=== PATIENT | male | born 1975 | race American Indian/Alaskan Native ===

== ENCOUNTER 2019-10-16 06:10 | Day surgery (SDC) | payer BC, OTHER ==
[~2019-10-16 06:10] MED LIST: MIDAZOLAM 2 MG/2 ML INJ IV NR; SCOPOLAMINE TRANSDERMAL PATCH 72 HR TD NR; SODIUM CHLORIDE 0.9% 1000 ML 1,000 ML IV SCH; ceFAZolin/Water 2 GM/20 ML 2 GM/20 ML SYRINGE IV NR; fentaNYL 100 MCG/2 ML INJ IV PRN
[2019-10-16 06:59] LABS: Hematocrit 28.5 % (35.5-45.6); Hemoglobin 9.8 gm/dl (11.8-15.2); Mean Corpuscular HGB Conc 34 % (32-34); Mean Corpuscular Volume 95 fl (84-94); Platelet Count 366 K/mm3 (140-440); Red Cell Distribution Width 14.7 % (13.2-15.2)
[2019-10-16] MEDS ORDERED: BUPIVACAINE/PF (0.5%) 5 MG/1 ML 30 ML VIAL INFILTRATI ONE ×3 (07:15→09:52)
[2019-10-16 07:17] LABS: Calcium 7.4 mg/dL (8.4-10.2)
--- NOTE | 2019-10-16 07:19 | Anesthesia Day of Surgery ---
Anesthesia Day of Surgery - Day of Surgery Patient Examined: Yes Patient H&P Reviewed: Yes Patient is NPO: Yes Beta Blockers: Yes (carvedilol today AM)
--- NOTE | 2019-10-16 07:19 | Anesthesia Consultation ---
Anesthesia Consult and Med Hx Date of service: 10/16/19 - Airway Anesthetic Teeth Evaluation: Good ROM Head & Neck: Adequate Mental/Hyoid Distance: Adequate Mallampati Class: Class III Intubation Access Assessment: Possibly Difficult - Pulmonary Exam CTA: Yes - Cardiac Exam Cardiac Exam: RRR - Pre-Operative Health Status ASA Pre-Surgery Classification: ASA3 Proposed Anesthetic Plan: MAC Nerve Block: Suraclavicular - Pulmonary Hx Smoking: Yes (cigars) Hx Respiratory Symptoms: No Hx Sleep Apnea: No (KAI HIGH ON PRESCREEN- SNORES) - Cardiovascular System Hx Hypertension: Yes (took antihypertensives this morning) Hx Heart Attack/AMI: No (normal EF on 01/2018 TTE) Hx Percutaneous Transluminal Coronary Angioplasty (PTCA): No Hx Cardia Arrhythmia: No Hx Valvular Heart Disease: No - Central Nervous System CVA: No - Gastrointestinal Hx Gastroesophageal Reflux Disease: Yes - Endocrine Hx End Stage Renal Disease: Yes (last PD 8/3 (nightly PD)) Hx Liver Disease: No Hx Insulin Dependent Diabetes: Yes Hx Thyroid Disease: No - Hematic Hx Anemia: Yes - Other Systems Hx Obesity: Yes (BMI 30) - Additional Comments Anesthesia Medical History Comments: No hx anesthetic complications.
[2019-10-16] MEDS ORDERED: BUPIVACAINE-EPINEPHRINE/PF 0.5%-1:200,000 (30 ML) VIAL INFILTRATI ONE (07:39)
[2019-10-16] MEDS ORDERED: LIDOCAINE (1%) 10 MG/1 ML VIAL 20 ML MDV ONE (07:39)
[2019-10-16] MEDS ORDERED: HEPARIN 10,000 UNITS/10 ML VIAL ONE (07:39)
[2019-10-16] MEDS ORDERED: SODIUM CHLORIDE 0.45% 500 ML IV ONE ×2 (07:39→10:29)
[2019-10-16] MEDS ORDERED: PROTAMINE SULFATE 50 MG/5 ML INJ ONE (07:39)
[2019-10-16] MEDS ORDERED: GELATIN SPONGE SIZE 100 TP ONE (07:39)
[2019-10-16] MEDS ORDERED: THROMBIN (RECOMBINANT) 5,000 UNIT VIAL TP ONE (07:40)
[2019-10-16] MEDS ORDERED: LIDOCAINE MPF (2%) 20 MG/1 ML VIAL 5 ML ONE (07:43)
[2019-10-16] MEDS ORDERED: ONDANSETRON 4 MG/2 ML INJ ONE (07:43)
[2019-10-16] MEDS ORDERED: KETAMINE/STERILE WATER 50 MG/ML SYRINGE ONE (07:44)
[2019-10-16] MEDS ORDERED: propofoL 200 MG/20 ML VIAL IV ONE ×2 (07:44→09:39)
[2019-10-16] MEDS ORDERED: HYDROmorphone 1 MG/1 ML INJ ONE (07:44)
[2019-10-16] MEDS ORDERED: HEPARIN 10,000 UNITS/10 ML VIAL IV ONE (09:50)
[2019-10-16] MEDS ORDERED: SODIUM CHLORIDE 0.9% IRR 1,500 ML BOTTLE IR ONE (09:51)
[2019-10-16] MEDS ORDERED: LIDOCAINE (1%) 10 MG/1 ML VIAL 20 ML MDV INFILTRATI ONE (09:51)
[2019-10-16] MEDS ORDERED: SODIUM CHLORIDE 0.9% IRR 500 ML BOTTLE IR ONE (09:52)
[2019-10-16] MEDS ORDERED: rifAMPin 600 MG VIAL ONE (10:34)
[2019-10-16] MEDS ORDERED: rifAMPin 600 MG VIAL IV ONE (11:01)
[2019-10-16] MEDS ORDERED: SODIUM CHLORIDE 0.9% P/F 10 ML VIAL IV ONE (11:02)
[2019-10-16] MEDS ORDERED: hydrALAZINE 20 MG/1 ML INJ ONE (11:05)
[2019-10-16] MEDS ORDERED: DEXTROSE 50% IN WATER (25GM) 50 ML SYRINGE IV ONE (11:42)
--- NOTE | 2019-10-16 11:42 | Short Stay Summary ---
Short Stay Documentation Date of service: 10/16/19 Narrative H&P: See H&P - History H&P: obtained from office - Allergies and Medications Current Medications: Allergies No Known Allergies Allergy (Unverified 10/10/19 16:20) Home Medications Medication Instructions Recorded Confirmed Last Taken Type Calcium Acetate [Phoslo] 3 cap PO TID 10/10/19 10/10/19 Unknown History Ergocalciferol [Vitamin D2] 1 cap PO 1XW 10/10/19 10/10/19 Unknown History Ergocalciferol [Vitamin D2] 1 cap PO PRN 10/10/19 10/10/19 Unknown History Lispro Insulin [HumaLOG] 0 units SQ PRN 10/10/19 10/10/19 Unknown History Olopatadine HCl 2 puff INNOSTRIL PRN 10/10/19 10/10/19 Unknown History Torsemide 20 mg PO BID 10/10/19 10/16/19 10/16/19 05:00 History Toujeo Solostar 10 units SQ HS 10/10/19 10/10/19 Unknown History carvediloL [Coreg] 12.5 mg PO BID 10/10/19 10/16/19 10/16/19 05:00 History cloNIDine-TTS PATCH [Catapres-Tts 0.2 mg TRANSDERMA 1XW 10/10/19 10/16/19 10/13/19 09:00 History 0.2mg Patch] hydrALAZINE 100 mg PO TID 10/10/19 10/16/19 10/16/19 05:00 History Active Medications Fentanyl (Sublimaze) 100 mcg IV ONCE PRN PRN Reason: sedation for nerve block Last Admin: 10/16/19 07:26 Dose: 100 mcg Documented by: Cefazolin Sodium (Ancef/Sterile Water 2 Gm/20 Ml) 2 gm in 20 mls @ 80 mls/hr IV PREOP NR; Protocol Stop: 10/16/19 20:00 Sodium Chloride (Nacl 0.9% 1000 Ml) 1,000 mls @ 42 mls/hr IV DIRECT YISSEL Stop: 10/16/19 23:59 Last Admin: 10/16/19 07:25 Dose: 42 mls/hr Documented by: Midazolam HCl (Versed) 2 mg IV PREOP NR Stop: 08/04/20 23:59 Last Admin: 10/16/19 07:26 Dose: 2 mg Documented by: Scopolamine (Transderm-Scop) 1 each TD PREOP NR Stop: 10/16/19 23:59 Last Admin: 10/16/19 06:45 Dose: 1 each Documented by: - Brief post op/procedure progress note Date of procedure: 10/16/19 Pre-op diagnosis: End-Stage Renal Disease Post-op diagnosis: same Procedure: Creation of Left Brachial Artery to Axillary Vein Arteriovenous Graft with 6 mm Bovine Artegraft Anesthesia: MAC, regional Findings: Cephalic vein was not usable for creation of arteriovenous graft Surgeon: STEPHANIE CAMP Estimated blood loss: 50-100ml Pathology: none Condition: stable - Disposition Condition at discharge: Good Disposition: DC-01 TO HOME OR SELFCARE Short Stay Discharge Plan Activity: other (No heavy lifting with left arm for 2 weeks) Wound: open to air, keep clean and dry, other (Okay to wash the wounds with soap and water but do not soak in water for 2 weeks) Follow up with: STEPHANIE CAMP MD [Staff Physician] - 14 Days Prescriptions: HYDROcodone/APAP 7.5-325 [[place] 7.5/325] 1 each PO Q6HR PRN #40 tablet PRN Reason: Pain
--- NOTE | 2019-10-16 11:51 | Operative Report ---
Operative Report Operative Report: Date of procedure: 10/16/2019 Pre-operative diagnosis: End-Stage Renal Disease Post-operative diagnosis: Same Procedure(s): 1. Creation of Left Brachial Artery to Axillary Vein AV Graft with 6 mm Bovine Graft Artergraft Surgeon: Alpesh Godfrey MD Trolley Worker: None Anesthesia: Regional/MAC EBL: Minimal Counts: Correct Complications: None Condition: Stable Findings: Successful Creation of Left Arm AV Graft. The cephalic vein was not usable for creation of an arteriovenous fistula. Specimen: None Indication: The patient is a 44-year-old male with a history of end-stage renal disease who is currently on peritoneal dialysis. He is currently not getting adequate clearance with his peritoneal dialysis and will require conversion to hemodialysis. He had a vein mapping that demonstrated marginally sized veins in his left upper extremity. He was given the risk, benefits, and alternative proc edures of creation of an arteriovenous access in his left upper extremity and consented to the procedure. Description of Procedure: A regional block was performed in the preoperative area prior to transporting the patient to the operating room. After a regional block was performed the patient was transported to the operating room and adequately sedated. After a timeout was performed the patient's left arm was prepped and draped in normal sterile fashion. A transverse incision was created just below the antecubital crease and carried down to the cephalic vein using sharp dissection. The vein in this incision was atretic so I created a longitudinal of the vein in the forearm and dissected us or fortunately. I dissected out the brachial artery and the antecubital incision. I dissected the artery circumferentially and controlled with Vesseloops. I made attempts to pass a 2 and 3 Buster through the cephalic vein without success so the decision was made to abandon attempts to create an arteriovenous fistula. I decided to create an arteriovenous graft. A second incision was created in longitudinal fashion on the medial aspect of the arm just distal to the axillary crease and carried down to the axillary vein using sharp dissection. Axillary vein was dissected out circumferentially and controlled with a vessel loop. I then used a Beverly-Wick tunneler to tunnel from the brachial artery incision to the axillary vein incision and then put an 6 mm bovine through the tunnel. I infused with heparinized saline to ensure that it was not twisted or kinked. I put the brachial artery vessel loops on tension controlling the flow and then created an arteriotomy using an 11 blade and Johnson scissors. I beveled the graft and created an end-to-side anastomosis using 6-0 Prolene running fashion. I clamped the graft just proximal to the anastomosis and then released the vessel loops restoring flow in the brachial artery. I placed quick clot in incision to achieve hemostasis. I cut the proximal end of the graft to the appropriate length and beveled the graft in preparation for a venous anastomosis. I controlled the axillary vein a Satinsky clamp and created a venotomy using an 11 blade and Johnson scissors. I created an end to side anastomosis using a 6-0 Prolene in running fashion. Prior to completing the anastomosis I flushed the graft to ensure there was no thrombus and then completed the anastamosis. I released all clamps allowing flow into the AV graft which had an excellent thrill. Hemostasis within the wound was achieved with a combination of quick clot and Erick. Once hemostasis was achieved all wounds were closed in 2 layers using 3-0 Vicryl in running fashion in the deep dermal layer and 4-0 Monocryl in running fashion the subcuticular layer. I dressed the wounds with Dermabond. The patient tolerated the procedure well. All sponge, needle, and instrument counts were correct. The patient was taken to recovery area in stable condition.
[2019-10-16 13:34] VITALS: BP 157/96
--- NOTE | 2019-10-16 15:44 | Post Anesthesia Evaluation ---
- Post Anesthesia Evaluation Patient Participated: Yes Airway Patent: Yes Stable Respiratory Function: Yes Nausea/Vomiting: No Temp > 96.8F: Yes Pain Manageable: Yes Adequeate Hydration: Yes Anesthesia Complications: No
== END 2019-10-16 13:37 | disposition home or self-care (01) ==
LOC: OR 06:10
PROVIDERS: ATTEND Surgery Vascular Surgery
DX: I13.2 Hypertensive heart and chronic kidney disease with heart failure and with stage 5 chronic kidney disease, or end stage renal disease (principal); E11.22 Type 2 diabetes mellitus with diabetic chronic kidney disease; I50.9 Heart failure, unspecified; N18.6 End stage renal disease; K21.9 Gastro-esophageal reflux disease without esophagitis; D64.9 Anemia, unspecified; F17.210 Nicotine dependence, cigarettes, uncomplicated; Z98.890 Other specified postprocedural states; Z99.2 Dependence on renal dialysis; Z72.89 Other problems related to lifestyle; Z79.899 Other long term (current) drug therapy; Z79.4 Long term (current) use of insulin
CPT/HCPCS: 36415; 36830; 80048; 82962; 85027; A4649; C1757; C1768; J0360; J0690; J1170; J1644; J2250; J2405; J2704; J2720; J3010; J3490; J7030; 64450

== ENCOUNTER 2020-05-06 07:56 | Day surgery (SDC) | payer BC ==
[~2020-05-06 07:56] MED LIST changes: -MIDAZOLAM 2 MG/2 ML INJ IV NR; -SCOPOLAMINE TRANSDERMAL PATCH 72 HR TD NR; -SODIUM CHLORIDE 0.9% 1000 ML 1,000 ML IV SCH; -fentaNYL 100 MCG/2 ML INJ IV PRN
[2020-05-06] MEDS ORDERED: SODIUM CHLORIDE 0.9% 1000 ML 1,000 ML ONE (08:25)
[2020-05-06 08:42] LABS: Hematocrit 31.6 % (35.5-45.6); Hemoglobin 10.4 gm/dl (11.8-15.2); Mean Corpuscular HGB Conc 33 % (32-34); Mean Corpuscular Volume 104 fl (84-94); Platelet Count 174 K/mm3 (140-440); Red Blood Count 3.04 M/mm3 (3.65-5.03); Red Cell Distribution Width 18.4 % (13.2-15.2)
[2020-05-06] MEDS ORDERED: HYDROmorphone 1 MG/1 ML INJ IV PRN ×2 (09:11)
[2020-05-06] MEDS ORDERED: ONDANSETRON 4 MG/2 ML INJ IV PRN (09:11)
--- NOTE | 2020-05-06 09:12 | Anesthesia Day of Surgery ---
Anesthesia Day of Surgery - Day of Surgery Patient Examined: Yes Patient H&P Reviewed: Yes Patient is NPO: Yes
--- NOTE | 2020-05-06 09:28 | Anesthesia Consultation ---
Anesthesia Consult and Med Hx Date of service: 05/06/20 - Airway Anesthetic Teeth Evaluation: Chipped ROM Head & Neck: Adequate Mental/Hyoid Distance: Adequate Mallampati Class: Class II Intubation Access Assessment: Good - Pre-Operative Health Status ASA Pre-Surgery Classification: ASA3 Proposed Anesthetic Plan: General Nerve Block: SC (SC Block; GA if needed) - Pulmonary Hx Smoking: Yes (cigars) Hx Asthma: No Hx Respiratory Symptoms: No SOB: Yes (NONE RECENT) COPD: No Hx Pneumonia: No Hx Sleep Apnea: No (KAI HIGH ON PRESCREEN- SNORES) - Cardiovascular System Hx Hypertension: Yes Hx Heart Attack/AMI: No (normal EF on 01/2018 TTE) Hx Percutaneous Transluminal Coronary Angioplasty (PTCA): No Hx Cardia Arrhythmia: No Hx Pacemaker: No Hx Internal Defibrillator: No Hx Valvular Heart Disease: No - Central Nervous System Hx Seizures: No CVA: No Hx Back Pain: No Hx Psychiatric Problems: No - Gastrointestinal Hx Gastroesophageal Reflux Disease: Yes - Endocrine Hx Renal Disease: Yes (Last HD Tuesday) Hx End Stage Renal Disease: Yes (AV GRAFT LEFT) Hx Cirrhosis: No Hx Liver Disease: No Hx Insulin Dependent Diabetes: Yes Hx Thyroid Disease: No - Hematic Hx Anemia: Yes Hx Sickle Cell Disease: No - Other Systems Hx Alcohol Use: Yes (OCC. BEER) Hx Substance Use: No Hx Cancer: No - Additional Comments Anesthesia Medical History Comments: Was here [id number]
[2020-05-06] MEDS ORDERED: SODIUM CHLORIDE 0.9% 1000 ML 1,000 ML IV SCH (10:00)
[2020-05-06] MEDS ORDERED: MIDAZOLAM 2 MG/2 ML INJ ONE ×2 (10:14→11:18)
[2020-05-06] MEDS ORDERED: BUPIVACAINE-EPINEPHRINE/PF 0.5%-1:200,000 (10 ML) VIAL INFILTRATI ONE (10:14)
[2020-05-06] MEDS ORDERED: fentaNYL 100 MCG/2 ML INJ IV SCH (10:30)
[2020-05-06] MEDS ORDERED: fentaNYL 100 MCG/2 ML INJ ONE (10:31)
[2020-05-06] MEDS ORDERED: propofoL 200 MG/20 ML VIAL IV ONE ×3 (10:36→10:48)
[2020-05-06] MEDS ORDERED: MIDAZOLAM 2 MG/2 ML INJ IV NR (11:00)
[2020-05-06] MEDS ORDERED: ePHEDrine SULFATE 50 MG/1 ML INJ ONE (11:10)
[2020-05-06] MEDS ORDERED: SODIUM CHLORIDE 0.9% IRR 1,500 ML BOTTLE IR ONE (11:35)
[2020-05-06] MEDS ORDERED: HEPARIN 10,000 UNITS/10 ML VIAL ONE (11:55)
[2020-05-06] MEDS ORDERED: SODIUM CHLORIDE 0.9% 500 ML 500 ML ONE (11:56)
[2020-05-06] MEDS ORDERED: LIDOCAINE MPF (2%) 20 MG/1 ML VIAL 5 ML ONE (12:30)
[2020-05-06 13:12] VITALS: BP 161/94
[2020-05-06] MEDS ORDERED: oxyCODONE /ACETAMINOPHEN 5-325MG TAB ONE ×2 (13:16→13:32)
--- NOTE | 2020-05-06 13:28 | Short Stay Summary ---
Short Stay Documentation Date of service: 05/06/20 Narrative H&P: See H&P - History H&P: obtained from office - Allergies and Medications Current Medications: Allergies No Known Allergies Allergy (Unverified 10/10/19 16:20) Home Medications Medication Instructions Recorded Confirmed Last Taken Type Calcium Acetate [Phoslo] 3 cap PO TID 10/10/19 10/10/19 Unknown History Ergocalciferol [Vitamin D2] 1 cap PO 1XW 10/10/19 10/10/19 Unknown History Lispro Insulin [HumaLOG] 0 units SQ PRN 10/10/19 10/10/19 Unknown History Olopatadine HCl 2 puff INNOSTRIL PRN 10/10/19 10/10/19 Unknown History Torsemide 20 mg PO BID 10/10/19 10/16/19 10/16/19 05:00 History Toujeo Solostar 10 units SQ HS 10/10/19 10/10/19 Unknown History carvediloL [Coreg] 12.5 mg PO BID 10/10/19 10/16/19 10/16/19 05:00 History cloNIDine-TTS PATCH [Catapres-Tts 0.2 mg TRANSDERMA 1XW 10/10/19 10/16/19 10/13/19 09:00 History 0.2mg Patch] hydrALAZINE 100 mg PO TID 10/10/19 10/16/19 10/16/19 05:00 History HYDROcodone/APAP 7.5-325 [[place] 1 each PO Q6HR PRN #40 tablet 10/16/19 Unknown Rx 7.5/325] Active Medications Fentanyl (Fentanyl 100 Mcg/2 Ml Inj) 100 mcg IV ONCE YISSEL Stop: 05/06/20 21:00 Hydromorphone HCl (Hydromorphone 1 Mg/1 Ml Inj) 0.25 mg IV Q10MIN PRN PRN Reason: Pain, Moderate (4-6) Stop: 05/06/20 23:00 Hydromorphone HCl (Hydromorphone 1 Mg/1 Ml Inj) 0.5 mg IV Q10MIN PRN PRN Reason: Pain , Severe (7-10) Stop: 05/06/20 20:00 Cefazolin Sodium (Ancef/Sterile Water 2 Gm/20 Ml) 2 gm in 20 mls @ 80 mls/hr IV PREOP NR; Protocol Stop: 05/06/20 20:00 Sodium Chloride (Nacl 0.9% 1000 Ml) 1,000 mls @ 42 mls/hr IV DIRECT YISSEL Midazolam HCl (Midazolam 2 Mg/2 Ml Inj) 2 mg IV PREOP NR Stop: 05/06/20 23:59 Ondansetron HCl (Ondansetron 4 Mg/2 Ml Inj) 4 mg IV ONCE PRN PRN Reason: Nausea And Vomiting Stop: 05/06/20 23:00 - Brief post op/procedure progress note Date of procedure: 05/06/20 Pre-op diagnosis: Postoperative Seroma Post-op diagnosis: same Procedure: Incision and Drainage of Left Arm Postoperative Seroma Anesthesia: MAC, regional Surgeon: STEPHANIE ACMP Estimated blood loss: other (300ml) Pathology: list (portion of lining of seroma cavity) Specimen disposition: to lab Condition: stable - Disposition Condition at discharge: Good Disposition: DC-01 TO HOME OR SELFCARE Short Stay Discharge Plan Activity: other (No heavy lifting with left arm for 2 weeks.) Wound: open to air, keep clean and dry, other (Okay to shower and wash the wound with soap and water but do not soak in water for 2 weeks.) Follow up with: STEPHANIE CAMP MD [Staff Physician] - 14 Days Prescriptions: HYDROcodone/APAP 7.5-325 [[place] 7.5/325] 1 each PO Q6HR PRN #30 tablet PRN Reason: Pain
[2020-05-06] MEDS ORDERED: oxyCODONE /ACETAMINOPHEN 5-325MG TAB PO PRN ×2 (13:36→19:28)
--- NOTE | 2020-05-06 14:15 | Post Anesthesia Evaluation ---
- Post Anesthesia Evaluation Patient Participated: Yes Airway Patent: Yes Stable Respiratory Function: Yes Nausea/Vomiting: No Temp > 96.8F: Yes Pain Manageable: Yes Adequeate Hydration: Yes Anesthesia Complications: No Block Receding Appropriately: Not Applicable Patient on Ventilator: No
--- NOTE | 2020-05-06 16:39 | Operative Report ---
Operative Report Operative Report: Date of Procedure: 05/06/2020 Pre-operative Diagnosis: Left Upper Extremity Postoperative Seroma Post-operative Diagnosis: Same Procedure(s): 1. Incision and Drainage of Left Arm Postoperative Seroma Surgeon: Alpesh Godfrey M.D. News Editor: None Anesthesia: Regional/MAC EBL: 300 mL Counts: Correct Complications: None Condition: Stable Findings: The fluid collection was a seroma without any evidence of purulence. Specimen: Portion of the lining of the seroma was sent to pathology. Indication: The patient is a 44-year-old male with a history of end-stage renal disease who had a creation of a left arm arteriovenous graft several months ago. After the operation he had a persistent fluid collection over the incision of the arterial anastomosis. He is in need of incision and drainage. He was given the risk, benefits, and alternative procedures and consented to the procedure. Description of Procedure: Prior to proceeding to the operating room the patient had a regional block performed of his left arm. He was then transported to the operating room and adequately sedated. His left arm was then prepped and draped in normal sterile fashion. A transverse incision was then created to his previous incision and upon opening the incision there was a significant amount of serous fluid that drained from the incision. There was no evidence of purulence within the incision. There was an obvious seroma with a well-formed cavity. I decided to strip the lining to prevent reformation of the seroma. I used Russians to grab the lining and cautery to begin to strip the line of the seroma however while stripping the lining I inadvertently entered the graft. I used a 5 Buster with a three-way stopcock to gain control of the hemorrhaging. Once I was able to control hemorrhage I closed the hole within the graft using 5-0 Prolene in interrupted fashion. I removed the Buster and then completed the closure of the hole. I used cautery to cauterize the remaining lining of the seroma cavity in hopes that this will prevent the seroma from reforming. Once this was done further hemostasis within the wound was achieved with quick clot and direct pressure. Once hemostasis was achieved I resected the redundant skin and then closed the wound in 2 layers using 3-0 Vicryl running fashion the deep dermal layer and 4-0 Monocryl and running fashion the subcuticular layer and then dressed with Dermabond. The patient tolerated the procedure well. All sponge, needle, and instrument counts were correct. The patient was taken to the recovery area in stable condition.
== END 2020-05-06 07:57 | disposition home or self-care (01) ==
LOC: OR 07:56
PROVIDERS: ATTEND Surgery Vascular Surgery
DX: M79.81 Nontraumatic hematoma of soft tissue (principal); M79.89 Other specified soft tissue disorders; K21.9 Gastro-esophageal reflux disease without esophagitis; I13.2 Hypertensive heart and chronic kidney disease with heart failure and with stage 5 chronic kidney disease, or end stage renal disease; E11.22 Type 2 diabetes mellitus with diabetic chronic kidney disease; N18.6 End stage renal disease; I50.9 Heart failure, unspecified; D64.9 Anemia, unspecified; Z72.89 Other problems related to lifestyle; Z98.890 Other specified postprocedural states; Z79.899 Other long term (current) drug therapy; Z79.4 Long term (current) use of insulin; Z87.891 Personal history of nicotine dependence; Z99.2 Dependence on renal dialysis
CPT/HCPCS: 10140; 36415; 80048; 82962; 85027; 88304; C1757; J2250; J2704; J3010; J7030; J7040; J1644